=== PATIENT | female | born 1955 | race Hispanic/Latino ===

== ENCOUNTER → 2017-10-05 | Outpatient (CLI) | payer MEDICAID ==
[~2017-10-05] MED LIST: GLIP5TAB11 PO; LEVO500T89 PO; METO50TA18 PO; METR500T4 PO; OMEP20TA25 PO; POTA20TA12 PO
== END | disposition home or self-care (01) ==
LOC: SHCH 07:56
PROVIDERS: ATTEND Internal Medicine Cardiovascular Disease
DX: R94.31 Abnormal electrocardiogram [ECG] [EKG] (principal); I12.9 Hypertensive chronic kidney disease with stage 1 through stage 4 chronic kidney disease, or unspecified chronic kidney disease; E11.22 Type 2 diabetes mellitus with diabetic chronic kidney disease; N18.9 Chronic kidney disease, unspecified; Z90.49 Acquired absence of other specified parts of digestive tract; Z90.710 Acquired absence of both cervix and uterus
CPT/HCPCS: 93306

== ENCOUNTER → 2017-10-09 | Outpatient (CLI) | payer MEDICAID ==
[~2017-10-09] VITALS: Ht 157.5 cm; Wt 76.2 kg
[~2017-10-09] MED LIST changes: +REGADENOSON 0.4 MG/5 ML PF SYG IVP SCH
== END | disposition home or self-care (01) ==
LOC: SHCH 11:36
PROVIDERS: ATTEND Internal Medicine Cardiovascular Disease
DX: I25.10 Atherosclerotic heart disease of native coronary artery without angina pectoris (principal); R94.31 Abnormal electrocardiogram [ECG] [EKG]; I12.9 Hypertensive chronic kidney disease with stage 1 through stage 4 chronic kidney disease, or unspecified chronic kidney disease; E11.22 Type 2 diabetes mellitus with diabetic chronic kidney disease; N18.9 Chronic kidney disease, unspecified; Z90.49 Acquired absence of other specified parts of digestive tract; Z90.710 Acquired absence of both cervix and uterus
CPT/HCPCS: 78452; 93017; 96374; A9500 ×2; J2785

== ENCOUNTER 2019-09-12 07:44 | Inpatient (IN) | payer MEDICAID ==
[~2019-09-12] VITALS: Ht 157.5 cm; Wt 69.3 kg
[~2019-09-12 07:44] MED LIST changes: +METR-172 PO; -METR500T4 PO; -REGADENOSON 0.4 MG/5 ML PF SYG IVP SCH
[2019-09-12 08:41] LABS: BASOPHILS % (AUTO) 0.2 % (0.0-5.0); EOSINOPHILS % (AUTO) 0.1 % (0.0-8.0); HEMATOCRIT 34.6 % (36-48); LYMPHOCYTES % (AUTO) 18.4 % (21.0-51.0); MEAN CORPUSCULAR HEMOGLOBIN 31.1 pg (27.0-33.0); MEAN CORPUSCULAR HGB CONC 34.7 g/dL (32.0-36.0); MEAN CORPUSCULAR VOLUME 89.6 fL (79-99); MONOCYTES % (AUTO) 5.4 % (3.0-13.0); NEUTROPHILS % (AUTO) 75.5 % (40.0-77.0); PLATELET COUNT (AUTO) 205 K/uL (130-400); RED BLOOD CELL COUNT(AUTO) 3.86 MIL/uL (4.00-5.50); RED CELL DISTRIBUTION WIDTH 12.1 % (11.0-15.5); WHITE BLOOD COUNT (AUTO) 9.3 K/uL (4.8-10.8)
[2019-09-12 09:02] LABS: ALBUMIN 3.3 g/dL (3.5-5.0); BILIRUBIN,TOTAL 0.7 mg/dL (0.2-1.0); CREATININE 0.8 mg/dL (0.5-1.5); POTASSIUM 3.5 mmol/L (3.5-5.1); TOTAL PROTEIN, SERUM 8.5 g/dL (6.0-8.3)
[2019-09-12 09:14] LABS: INR 1.01 (0.85-1.15); PARTIAL THROMBOPLASTIN TIME 32.4 SEC (26.3-35.5); PROTHROMBIN TIME 10.9 SEC (9.6-11.6)
[2019-09-12] MEDS ORDERED: LEVOFLOXACIN 500 MG/D5W 100 ML 100 ML ONE (10:11)
[2019-09-12] MEDS: METHYLPREDNISOLONE SOD SUCC 40MG/ML 1ML IVP SCH ×2 (14:00→21:00)
[2019-09-12] MEDS ORDERED: DOXYCYCLINE 100MG+NS 250ML IV SCH (14:00)
[2019-09-12] MEDS ORDERED: ERGOCALCIFEROL (VITAMIN D2) 50,000 UNIT CAPSULE PO SCH (14:00)
[2019-09-12] MEDS: CEFTRIAXONE SODIUM 1 GM IVP SCH (14:00)
[2019-09-12] MEDS ORDERED: DOXYCYCLINE 100MG+NS 250ML 250 ML IV SCH (14:15)
[2019-09-12] MEDS ORDERED: METHYLPREDNISOLONE SOD SUCC 40MG/ML 1ML ONE ×2 (14:39→21:29)
[2019-09-12] MEDS ORDERED: CEFTRIAXONE SODIUM 1 GM ONE (14:39)
[2019-09-12] MEDS ORDERED: DOXYCYCLINE 100MG+NS 250ML 250 ML IV ONE (14:39)
[2019-09-12] MEDS ORDERED: PHARMACY COMMUNICATION MISC SCH (14:45)
[2019-09-12 15:04] LABS: HEMOGLOBIN A1C 7.5 % (4.0-6.0)
[2019-09-12] MEDS ORDERED: IVERMECTIN 3 MG TAB PO SCH (16:00)
[2019-09-12] MEDS: INSULIN HUMULIN R 100 UNIT/ML 3ML SQ SCH ×2 (16:30→21:00)
[2019-09-12] MEDS ORDERED: COMPOUND IV REFRIGERATED 1 EACH IVSOLN MISC PRN (18:15)
[2019-09-12] MEDS ORDERED: REMDESIVIR (EUA) 520 200 MG in SODIUM CHLORIDE 0.9% 250 ML IV ONE (18:30)
[2019-09-12] MEDS: FAMOTIDINE/PF 20 MG/2 ML VIAL IV SCH (21:00)
[2019-09-12] MEDS: DOXYCYCLINE HYCLATE 100 MG TABLET PO SCH (21:00)
[2019-09-12] MEDS ORDERED: FAMOTIDINE/PF 20 MG/2 ML VIAL IV ONE (21:30)
[2019-09-13] MEDS: CEFTRIAXONE SODIUM 1 GM IVP SCH ×2 (02:00→14:00)
[2019-09-13 04:25] LABS: BASOPHILS % (AUTO) 0.2 % (0.0-5.0); HEMATOCRIT 32.9 % (36-48); LYMPHOCYTES % (AUTO) 11.2 % (21.0-51.0); MEAN CORPUSCULAR HEMOGLOBIN 31.4 pg (27.0-33.0); MEAN CORPUSCULAR HGB CONC 34.7 g/dL (32.0-36.0); MEAN CORPUSCULAR VOLUME 90.6 fL (79-99); MONOCYTES % (AUTO) 1.6 % (3.0-13.0); NEUTROPHILS % (AUTO) 86.3 % (40.0-77.0); PLATELET COUNT (AUTO) 222 K/uL (130-400); RED BLOOD CELL COUNT(AUTO) 3.63 MIL/uL (4.00-5.50); RED CELL DISTRIBUTION WIDTH 12.3 % (11.0-15.5); WHITE BLOOD COUNT (AUTO) 8.7 K/uL (4.8-10.8)
[2019-09-13 04:37] LABS: ALBUMIN 2.9 g/dL (3.5-5.0); BILIRUBIN,TOTAL 0.5 mg/dL (0.2-1.0); CREATININE 0.9 mg/dL (0.5-1.5); POTASSIUM 4.5 mmol/L (3.5-5.1); TOTAL PROTEIN, SERUM 8.2 g/dL (6.0-8.3)
[2019-09-13] MEDS ORDERED: DOXYCYCLINE HYCLATE 100 MG TABLET PO ONE ×4 (04:37→21:21)
[2019-09-13 05:05] LABS: CRP QUANTITATIVE 194.8 mg/L (0.00-9.0)
[2019-09-13] MEDS: INSULIN HUMULIN R 100 UNIT/ML 3ML SQ SCH ×4 (07:30→21:00)
[2019-09-13] MEDS ORDERED: OMEG1CAP45 PO (08:25)
[2019-09-13] MEDS ORDERED: MV C1CAP5 PO (08:25)
[2019-09-13] MEDS ORDERED: LISI40TA4 PO (08:25)
[2019-09-13] MEDS ORDERED: GLIM4TAB36 PO (08:25)
[2019-09-13] MEDS ORDERED: BUTA1CAP53 PO (08:25)
[2019-09-13] MEDS ORDERED: AMLO5TAB9 PO (08:25)
[2019-09-13] MEDS ORDERED: METO75TA PO (08:25)
[2019-09-13] MEDS ORDERED: METF-445 PO (08:25)
[2019-09-13] MEDS: FAMOTIDINE/PF 20 MG/2 ML VIAL IV SCH ×2 (09:00→21:00)
[2019-09-13] MEDS: ENOXAPARIN SODIUM 40 MG/0.4 ML SYRINGE SQ SCH (09:00)
[2019-09-13] MEDS: ASCORBIC ACID 500 MG TAB PO SCH (09:00)
[2019-09-13] MEDS: METHYLPREDNISOLONE SOD SUCC 40MG/ML 1ML IVP SCH ×3 (09:00→21:00)
[2019-09-13] MEDS: DOXYCYCLINE HYCLATE 100 MG TABLET PO SCH ×2 (09:00→21:00)
[2019-09-13] MEDS ORDERED: ENOXAPARIN SODIUM 40 MG/0.4 ML SYRINGE SQ ONE (09:06)
[2019-09-13] MEDS ORDERED: METHYLPREDNISOLONE SOD SUCC 40MG/ML 1ML ONE ×3 (09:06→21:04)
[2019-09-13] MEDS ORDERED: ASCORBIC ACID 500 MG TAB ONE (09:06)
[2019-09-13] MEDS ORDERED: FAMOTIDINE/PF 20 MG/2 ML VIAL IV ONE ×2 (09:07→21:04)
[2019-09-13] MEDS ORDERED: INSULIN HUMULIN R 100 UNIT/ML 3ML ONE ×3 (09:32→21:17)
[2019-09-13 11:11] LABS: HEPATITIS A ANTIBODY IGM Negative (Negative); HEPATITIS B CORE IGM Negative (Negative); HEPATITIS Bs ANTIGEN SCREEN P Negative (Negative)
[2019-09-13] MEDS: ZINC SULFATE 220 CAPSULE PO SCH (12:00)
[2019-09-13] MEDS ORDERED: ZINC SULFATE 220 CAPSULE ONE (12:49)
--- NOTE | 2019-09-13 13:13 | NUR ---
CHART CHECK COMPLETED. Pt IS A 64 Y.O. FEMALE ADMITTED SECONDARY TO ACUTE HYPOXIC RESPIRATORY FAILURE, COVID 19 PNEUMONIA. Pt HAS A PAST MEDICAL HISTORY SIGNIFICANT FOR DM, HTN, BREAST CA, ANEMIA, HYPONATREMIA, CHOLECYSTECTOMY, HYSTERECTOMY. Pt CURRENTLY ON REGULAR TEXTURE,THIN LIQUID DIET (HEART HEALTHY). PLEASE REQUEST FORMAL SKILLED SPEECH/SWALLOW EVALUATION IF Pt PRESENTS WITH +S/S OF ASPIRATION SUCH COUGH RESPONSE, THROAT CLEAR, OR WET VOCAL QUALITY DURING P.O. Addendum: 09/13/19 at 1318 by LAYO SWANSON [facility] Amended: Links added.
[2019-09-13] MEDS ORDERED: CEFTRIAXONE SODIUM 1 GM ONE (14:52)
[2019-09-13] MEDS: REMDESIVIR (EUA) 520 100 MG in SODIUM CHLORIDE 0.9% 250 ML IV SCH (18:00)
[2019-09-14] VITALS (7 sets, daily range): BP systolic 108–151; BP diastolic 64–91
[2019-09-14] MEDS: CEFTRIAXONE SODIUM 1 GM IVP SCH ×2 (01:54→15:12)
--- NOTE | 2019-09-14 02:34 | NUR ---
Non-Compliant Patient Patient has been educated on numerous occasions the importance of keeping her heart monitor on. However, she still chooses to be non-compliant and take the monitor off. She is still being closely monitored.
[2019-09-14 04:57] LABS: BASOPHILS % (AUTO) 0.1 % (0.0-5.0); HEMATOCRIT 33.2 % (36-48); MEAN CORPUSCULAR HEMOGLOBIN 30.9 pg (27.0-33.0); MEAN CORPUSCULAR HGB CONC 34.3 g/dL (32.0-36.0); MONOCYTES % (AUTO) 4.6 % (3.0-13.0); NEUTROPHILS % (AUTO) 81.4 % (40.0-77.0); PLATELET COUNT (AUTO) 282 K/uL (130-400); RED BLOOD CELL COUNT(AUTO) 3.69 MIL/uL (4.00-5.50); RED CELL DISTRIBUTION WIDTH 12.1 % (11.0-15.5); WHITE BLOOD COUNT (AUTO) 10.5 K/uL (4.8-10.8)
[2019-09-14 05:17] LABS: ALBUMIN 2.8 g/dL (3.5-5.0); BILIRUBIN,TOTAL 0.3 mg/dL (0.2-1.0); CREATININE 0.9 mg/dL (0.5-1.5); CRP QUANTITATIVE 134.9 mg/L (0.00-9.0); POTASSIUM 4.7 mmol/L (3.5-5.1); TOTAL PROTEIN, SERUM 7.9 g/dL (6.0-8.3)
[2019-09-14] MEDS: INSULIN HUMULIN R 100 UNIT/ML 3ML SQ SCH ×4 (06:14→21:08)
[2019-09-14 07:00] LABS: APPEARANCE,URINE Clear (CLEAR); BILIRUBIN,URINE Negative (NEGATIVE); COLOR,URINE Yellow (YELLOW); GLUCOSE, URINE (UA) >=1000 mg/dL (NEGATIVE); KETONES,URINE Trace mg/dL (NEGATIVE); LEUKOCYTE ESTERASE ,URINE Negative (NEGATIVE); NITRATE,URINE Negative (NEGATIVE); OCCULT BLOOD,URINE Negative (NEGATIVE); PH,URINE 5.5 (5.0-8.0); PROTEIN,URINE Trace mg/dL (NEGATIVE); UROBILINOGEN,URINE 0.2 mg/dL (0.2-1.0)
[2019-09-14 07:14] LABS: BACTERIA,URINE Rare /HPF (None Seen); RBC,URINE 0-1 /HPF (0-1); SQUAMOUS EPITHELIAL CELL,UR Rare /HPF (0-2); WBC,URINE 0-1 /HPF (0-1)
[2019-09-14] MEDS: DOXYCYCLINE HYCLATE 100 MG TABLET PO SCH ×2 (08:40→21:08)
[2019-09-14] MEDS: ASCORBIC ACID 500 MG TAB PO SCH (08:40)
[2019-09-14] MEDS: METHYLPREDNISOLONE SOD SUCC 40MG/ML 1ML IVP SCH ×3 (08:40→21:08)
[2019-09-14] MEDS: FAMOTIDINE/PF 20 MG/2 ML VIAL IV SCH ×2 (08:40→21:08)
[2019-09-14] MEDS: ENOXAPARIN SODIUM 40 MG/0.4 ML SYRINGE SQ SCH (08:41)
[2019-09-14] MEDS: ZINC SULFATE 220 CAPSULE PO SCH (11:48)
[2019-09-14] MEDS: REMDESIVIR (EUA) 520 100 MG in SODIUM CHLORIDE 0.9% 250 ML IV SCH (18:02)
--- NOTE | 2019-09-14 18:04 | NUR ---
MULTIPLE TIMES PT HAVE BEEN EDUCATED ABOUT CONDITION AND RISKS OF BEEN WITHOUT THE O2, PT NOT COMPLETELY COMPLIANT WITH TREATMENT, SEVERAL TIMES WHEN GOING TO THE ROOM SHE IS FOUND ON THE BATHROOM BY HER SELF AND DISCONNECTED FROM O2.
[2019-09-14] MEDS: INSULIN GLARGINE 100 UNITS/ML 10 ML VIAL SQ SCH (23:37)
[2019-09-15] MEDS: CEFTRIAXONE SODIUM 1 GM IVP SCH ×2 (02:00→14:53)
[2019-09-15 03:59] VITALS: BP 122/70
--- NOTE | 2019-09-15 04:19 | NUR ---
Assessment Patient was just rounded on & she was sleeping peacefully. She is not showing any S/S of distress. Vitals are stable & she is being closely monitored.
[2019-09-15] MEDS: INSULIN LISPRO 100 UNIT/ML 3ML SQ SCH ×3 (05:45→16:37)
[2019-09-15] MEDS: INSULIN HUMULIN R 100 UNIT/ML 3ML SQ SCH ×4 (05:47→20:51)
[2019-09-15 07:16] LABS: BASOPHILS % (AUTO) 0.1 % (0.0-5.0); HEMATOCRIT 31.6 % (36-48); LYMPHOCYTES % (AUTO) 11.5 % (21.0-51.0); MEAN CORPUSCULAR HEMOGLOBIN 31.2 pg (27.0-33.0); MEAN CORPUSCULAR HGB CONC 34.5 g/dL (32.0-36.0); MEAN CORPUSCULAR VOLUME 90.5 fL (79-99); MONOCYTES % (AUTO) 4.6 % (3.0-13.0); PLATELET COUNT (AUTO) 323 K/uL (130-400); RED BLOOD CELL COUNT(AUTO) 3.49 MIL/uL (4.00-5.50); RED CELL DISTRIBUTION WIDTH 12.3 % (11.0-15.5); WHITE BLOOD COUNT (AUTO) 11.9 K/uL (4.8-10.8)
[2019-09-15 07:36] LABS: ALBUMIN 2.8 g/dL (3.5-5.0); BILIRUBIN,TOTAL 0.3 mg/dL (0.2-1.0); CREATININE 0.8 mg/dL (0.5-1.5); CRP QUANTITATIVE 73.6 mg/L (0.00-9.0); TOTAL PROTEIN, SERUM 7.4 g/dL (6.0-8.3)
[2019-09-15] MEDS: DOXYCYCLINE HYCLATE 100 MG TABLET PO SCH ×2 (08:09→19:49)
[2019-09-15] MEDS: ASCORBIC ACID 500 MG TAB PO SCH (08:09)
[2019-09-15] MEDS: METHYLPREDNISOLONE SOD SUCC 40MG/ML 1ML IVP SCH ×3 (08:10→19:50)
[2019-09-15] MEDS: FAMOTIDINE/PF 20 MG/2 ML VIAL IV SCH ×2 (08:10→19:50)
[2019-09-15] MEDS: ENOXAPARIN SODIUM 40 MG/0.4 ML SYRINGE SQ SCH (08:11)
[2019-09-15 09:36] VITALS: BP 152/95
[2019-09-15] MEDS: ZINC SULFATE 220 CAPSULE PO SCH (12:00)
[2019-09-15 12:20] VITALS: BP 148/87
[2019-09-15 16:25] VITALS: BP 157/96
[2019-09-15] MEDS: REMDESIVIR (EUA) 520 100 MG in SODIUM CHLORIDE 0.9% 250 ML IV SCH (17:16)
--- NOTE | 2019-09-15 19:13 | NUR ---
AVINASH ELDRIDGE SPOKE TO DAUGHTER WAQAR FOR DC PLANNING PHONE NUMBERS OF PATIENT UPDATED AND FAXED. LIVES WITH SPOUSE PREVIOUSLY INDEPENDENT, HAS BEEN ON TX FOR CANCER, USES A CANE OCCASIONALLY, HAS A BP MACHINE AND GLUCOMETER, BUT NO OTHER DME EXCEPT A SHOWER CHAIR. HOME SAFE AND ACCESSIBLE NO PROVIDER SERVICES, WHEN WEAK FMAILY HELPS. SPOUSE AND DAUGHTER DRIVE . FOLLOWS WITH DR. KOBI GILLIS Q 3 [facility] LABS. [facility] Addendum: 09/15/19 at 1920 by LUCIANA MATTHEWS RN CM Amended: Links added.
[2019-09-15] MEDS: INSULIN GLARGINE 100 UNITS/ML 10 ML VIAL SQ SCH (20:50)
[2019-09-15 21:09] VITALS: BP 171/93
[2019-09-15 23:54] VITALS: BP 160/82
[2019-09-16] MEDS: CEFTRIAXONE SODIUM 1 GM IVP SCH ×2 (01:28→14:51)
[2019-09-16 04:29] LABS: BASOPHILS % (AUTO) 0.1 % (0.0-5.0); HEMATOCRIT 31.4 % (36-48); LYMPHOCYTES % (AUTO) 16.5 % (21.0-51.0); MEAN CORPUSCULAR HEMOGLOBIN 30.6 pg (27.0-33.0); MEAN CORPUSCULAR HGB CONC 34.1 g/dL (32.0-36.0); MEAN CORPUSCULAR VOLUME 89.7 fL (79-99); MONOCYTES % (AUTO) 5.7 % (3.0-13.0); NEUTROPHILS % (AUTO) 76.2 % (40.0-77.0); PLATELET COUNT (AUTO) 322 K/uL (130-400); WHITE BLOOD COUNT (AUTO) 8.8 K/uL (4.8-10.8)
[2019-09-16 04:46] LABS: CREATININE 0.8 mg/dL (0.5-1.5); POTASSIUM 4.4 mmol/L (3.5-5.1)
[2019-09-16] MEDS: INSULIN HUMULIN R 100 UNIT/ML 3ML SQ SCH ×4 (06:23→20:29)
[2019-09-16] MEDS: INSULIN LISPRO 100 UNIT/ML 3ML SQ SCH ×3 (06:24→16:53)
[2019-09-16 06:54] VITALS: BP 159/96
[2019-09-16] MEDS: ASCORBIC ACID 500 MG TAB PO SCH (08:29)
[2019-09-16] MEDS: DOXYCYCLINE HYCLATE 100 MG TABLET PO SCH ×2 (08:30→20:18)
[2019-09-16] MEDS: METHYLPREDNISOLONE SOD SUCC 40MG/ML 1ML IVP SCH ×2 (08:30→14:51)
[2019-09-16] MEDS: ENOXAPARIN SODIUM 40 MG/0.4 ML SYRINGE SQ SCH (08:30)
[2019-09-16] MEDS: FAMOTIDINE/PF 20 MG/2 ML VIAL IV SCH ×2 (08:30→20:18)
[2019-09-16 08:49] VITALS: BP 154/93
[2019-09-16 11:04] VITALS: BP 168/93
[2019-09-16] MEDS: ZINC SULFATE 220 CAPSULE PO SCH (12:29)
--- NOTE | 2019-09-16 16:03 | NUR ---
Oncology Consult for MD Teresita MD notified per breast cancer, pt alert, showed no signs and symptoms of distress, will continue to monitor
[2019-09-16 16:19] VITALS: BP 170/77
[2019-09-16] MEDS: REMDESIVIR (EUA) 520 100 MG in SODIUM CHLORIDE 0.9% 250 ML IV SCH (16:55)
[2019-09-16] MEDS: INSULIN GLARGINE 100 UNITS/ML 10 ML VIAL SQ SCH (20:29)
[2019-09-16 21:02] VITALS: BP 171/86
[2019-09-17 01:11] VITALS: BP 164/86
[2019-09-17] MEDS: CEFTRIAXONE SODIUM 1 GM IVP SCH ×2 (01:53→14:28)
[2019-09-17 03:52] LABS: BASOPHILS % (AUTO) 0.1 % (0.0-5.0); EOSINOPHILS % (AUTO) 0.1 % (0.0-8.0); HEMATOCRIT 33.3 % (36-48); LYMPHOCYTES % (AUTO) 25.3 % (21.0-51.0); MEAN CORPUSCULAR HEMOGLOBIN 30.8 pg (27.0-33.0); MEAN CORPUSCULAR HGB CONC 34.5 g/dL (32.0-36.0); MEAN CORPUSCULAR VOLUME 89.3 fL (79-99); MONOCYTES % (AUTO) 6.7 % (3.0-13.0); NEUTROPHILS % (AUTO) 66.3 % (40.0-77.0); PLATELET COUNT (AUTO) 332 K/uL (130-400); RED BLOOD CELL COUNT(AUTO) 3.73 MIL/uL (4.00-5.50); RED CELL DISTRIBUTION WIDTH 11.9 % (11.0-15.5); WHITE BLOOD COUNT (AUTO) 8.8 K/uL (4.8-10.8)
[2019-09-17 04:02] LABS: CREATININE 0.8 mg/dL (0.5-1.5); POTASSIUM 4.1 mmol/L (3.5-5.1)
[2019-09-17] MEDS: INSULIN HUMULIN R 100 UNIT/ML 3ML SQ SCH ×4 (05:23→20:19)
[2019-09-17] MEDS: INSULIN LISPRO 100 UNIT/ML 3ML SQ SCH ×3 (05:23→16:58)
--- NOTE | 2019-09-17 06:22 | NUR ---
Assessment Patient was just rounded on this morning. She is in the bed resting peacefully. She is not showing any S/S of distress. Her Vitals are stable & she is being closely monitored.
[2019-09-17 06:28] VITALS: BP 157/93
[2019-09-17 08:31] VITALS: BP 160/94
[2019-09-17] MEDS: DEXAMETHASONE SOD PHOSPHATE 4 MG/ML 1ML VIAL IVP SCH (09:01)
[2019-09-17] MEDS: FAMOTIDINE/PF 20 MG/2 ML VIAL IV SCH ×2 (09:01→20:13)
[2019-09-17] MEDS: DOXYCYCLINE HYCLATE 100 MG TABLET PO SCH ×2 (09:02→20:13)
[2019-09-17] MEDS: ASCORBIC ACID 500 MG TAB PO SCH (09:02)
[2019-09-17] MEDS: ENOXAPARIN SODIUM 40 MG/0.4 ML SYRINGE SQ SCH (09:02)
[2019-09-17 11:29] VITALS: BP 162/88
[2019-09-17] MEDS: ZINC SULFATE 220 CAPSULE PO SCH (12:28)
--- NOTE | 2019-09-17 12:57 | NUR ---
spot checked pt on room air, sp02 98%, pt sitting up in bedside chair. no acute distress observed or reported.
--- NOTE | 2019-09-17 15:08 | NUR ---
RT home oxygen eval completed, pt does not qualify for home oxygen.
[2019-09-17 16:08] VITALS: BP 131/84
[2019-09-17] MEDS: INSULIN GLARGINE 100 UNITS/ML 10 ML VIAL SQ SCH (20:20)
[2019-09-17 20:46] VITALS: BP 141/96
[2019-09-18 00:28] VITALS: BP 153/93
[2019-09-18] MEDS: CEFTRIAXONE SODIUM 1 GM IVP SCH (02:03)
--- NOTE | 2019-09-18 04:40 | NUR ---
Assessment Patient is in the bed sleeping peacefully. She is not showing any S/S of distress. Vitals are stable & she is being closely monitored,
[2019-09-18] MEDS: INSULIN HUMULIN R 100 UNIT/ML 3ML SQ SCH ×2 (05:26→12:12)
[2019-09-18] MEDS: INSULIN LISPRO 100 UNIT/ML 3ML SQ SCH ×2 (05:26→12:11)
[2019-09-18 06:15] LABS: MEAN CORPUSCULAR HEMOGLOBIN 31.1 pg (27.0-33.0); MEAN CORPUSCULAR HGB CONC 35.1 g/dL (32.0-36.0); MEAN CORPUSCULAR VOLUME 88.6 fL (79-99); PLATELET COUNT (AUTO) 349 K/uL (130-400); RED BLOOD CELL COUNT(AUTO) 3.95 MIL/uL (4.00-5.50); RED CELL DISTRIBUTION WIDTH 11.7 % (11.0-15.5); WHITE BLOOD COUNT (AUTO) 8.5 K/uL (4.8-10.8)
[2019-09-18 06:17] VITALS: BP 134/86
[2019-09-18 08:07] LABS: BAND NEUTROPHILS % (MANUAL) 2 % (0-2); EOSINOPHILS % (MANUAL) 1 % (1-6); LYMPHOCYTES % (MANUAL) 21 % (22-44); MAN.DIFF COMMENT-IMPRESSION MANUAL DIFFERENTIAL; MONOCYTES % (MANUAL) 3 % (2-9); PLATELET MORPHOLOGY COMMENT ADEQUATE; SEGMENTED NEUTROPHILS % 73 % (40-70)
[2019-09-18 08:10] LABS: BILIRUBIN,TOTAL 0.4 mg/dL (0.2-1.0); CREATININE 0.8 mg/dL (0.5-1.5); CRP QUANTITATIVE 29.4 mg/L (0.00-9.0); POTASSIUM 3.8 mmol/L (3.5-5.1); TOTAL PROTEIN, SERUM 7.3 g/dL (6.0-8.3)
[2019-09-18 08:13] VITALS: BP 137/95
[2019-09-18] MEDS: ASCORBIC ACID 500 MG TAB PO SCH (08:25)
[2019-09-18] MEDS: DOXYCYCLINE HYCLATE 100 MG TABLET PO SCH (08:25)
[2019-09-18] MEDS: FAMOTIDINE/PF 20 MG/2 ML VIAL IV SCH (08:25)
[2019-09-18] MEDS: DEXAMETHASONE SOD PHOSPHATE 4 MG/ML 1ML VIAL IVP SCH (08:28)
[2019-09-18] MEDS: ENOXAPARIN SODIUM 40 MG/0.4 ML SYRINGE SQ SCH (08:28)
[2019-09-18 12:07] VITALS: BP 124/82
[2019-09-18] MEDS: ZINC SULFATE 220 CAPSULE PO SCH (12:14)
[2019-09-18] MEDS ORDERED: ZINC1CAP3 PO (13:13)
[2019-09-18] MEDS ORDERED: CETI10CA5 PO (13:13)
[2019-09-18] MEDS ORDERED: ALBU8.5H8 IH (13:13)
[2019-09-18] MEDS ORDERED: DEXA6TAB7 PO (13:13)
[2019-09-18] MEDS ORDERED: DOXY100C40 PO (13:13)
[2019-09-18] MEDS ORDERED: ASCO500T10 PO (13:13)
== END 2019-09-18 15:30 | disposition home or self-care (01) | DRG 137 ==
LOC: EDH 07:44 → EDHIP 07:45 → 4DH 09-13 21:07
PROVIDERS: ADMIT Hospitalist; ATTEND Hospitalist
DX: U07.1 COVID-19 (principal); J12.89 Other viral pneumonia; J96.01 Acute respiratory failure with hypoxia; E87.1 Hypo-osmolality and hyponatremia; C50.919 Malignant neoplasm of unspecified site of unspecified female breast; N18.9 Chronic kidney disease, unspecified; E11.22 Type 2 diabetes mellitus with diabetic chronic kidney disease; I12.9 Hypertensive chronic kidney disease with stage 1 through stage 4 chronic kidney disease, or unspecified chronic kidney disease; R74.0 Nonspecific elevation of levels of transaminase and lactic acid dehydrogenase [LDH]; E78.5 Hyperlipidemia, unspecified; J44.0 Chronic obstructive pulmonary disease with (acute) lower respiratory infection; Z85.3 Personal history of malignant neoplasm of breast; Z86.19 Personal history of other infectious and parasitic diseases; Z90.710 Acquired absence of both cervix and uterus; Z92.21 Personal history of antineoplastic chemotherapy
CPT/HCPCS: 36415; 70450; 71045; 73110; 80048; 80053; 80074; 81001; 82728; 82948; 83036; 83605; 83615; 83880; 84145; 84484; 85025; 85378; 85610; 85730; 86140; 86850; 86900; 86901; 87040; 87426; 93005; 94760; G0378; J0696; J1100; J1650; J1815; J1956; J2920; J3490; J7050

== ENCOUNTER 2020-04-04 08:39 | Day surgery (SDC) | payer MEDICAID ==
[2020-03-28 11:56] LABS: BASOPHILS % (AUTO) 0.8 % (0.0-5.0); EOSINOPHILS % (AUTO) 5.3 % (0.0-8.0); HEMATOCRIT 37.4 % (36-48); LYMPHOCYTES % (AUTO) 36.5 % (21.0-51.0); MEAN CORPUSCULAR HEMOGLOBIN 31.1 pg (27.0-33.0); MEAN CORPUSCULAR VOLUME 91.4 fL (79-99); MONOCYTES % (AUTO) 8.6 % (3.0-13.0); NEUTROPHILS % (AUTO) 48.6 % (40.0-77.0); PLATELET COUNT (AUTO) 164 K/uL (130-400); RED BLOOD CELL COUNT(AUTO) 4.09 MIL/uL (4.00-5.50); RED CELL DISTRIBUTION WIDTH 12.3 % (11.0-15.5); WHITE BLOOD COUNT (AUTO) 5.3 K/uL (4.8-10.8)
[2020-03-28 12:08] LABS: INR 0.99 (0.85-1.15); PROTHROMBIN TIME 10.8 SEC (9.6-11.6)
[2020-03-28 12:09] LABS: PARTIAL THROMBOPLASTIN TIME 25.3 SEC (26.3-35.5)
[2020-03-28 12:12] LABS: ALBUMIN 4.4 g/dL (3.5-5.0); BILIRUBIN,TOTAL 0.3 mg/dL (0.2-1.0); CREATININE 0.9 mg/dL (0.5-1.5); POTASSIUM 5.5 mmol/L (3.5-5.1); TOTAL PROTEIN, SERUM 8.6 g/dL (6.0-8.3)
[2020-04-03 12:39] VITALS: BP 155/82
[~2020-04-04] VITALS: Ht 160 cm; Wt 73.8 kg
[2020-04-04] VITALS (19 sets, daily range): BP systolic 130–156; BP diastolic 65–88
[~2020-04-04 08:39] MED LIST changes: +ALBU8.5H8 IH; +AMLO-257 PO; +ASCO500T10 PO; +BUTA1CAP53 PO; +CEFAZOLIN SODIUM 1 GM VIAL IVP SCH; +CETI10CA5 PO; +DEXA6TAB7 PO; +DOXY100C40 PO; +GLIM4TAB36 PO; -GLIP5TAB11 PO; -LEVO500T89 PO; +LISI40TA9 PO; +METF-445 PO; -METO50TA18 PO; +METO75TA PO; -METR-172 PO; +MV C1CAP5 PO; +OMEG1CAP45 PO; -OMEP20TA25 PO; -POTA20TA12 PO; +SODIUM CHLORIDE 0.9% 100 ML IV SCH; +ZINC1CAP3 PO
[2020-04-04] MEDS ORDERED: METF-446 PO (08:52)
[2020-04-04] MEDS ORDERED: LETR2.5T7 PO (08:55)
[2020-04-04] MEDS ORDERED: CEFAZOLIN SODIUM 1 GM VIAL ONE (09:48)
[2020-04-04] MEDS ORDERED: LIDOCAINE HCL 1% 20 ML VIAL ONE (10:44)
[2020-04-04] MEDS ORDERED: BUPIVACAINE/PF 0.25% 50ML VIAL IJ ONE (10:44)
[2020-04-04] MEDS ORDERED: SUCCINYLCHOLINE CHLORIDE 20 MG/ML 10 ML VIAL ONE (11:02)
[2020-04-04] MEDS ORDERED: ONDANSETRON HCL 4 MG/2 ML VIAL ONE (11:02)
[2020-04-04] MEDS ORDERED: PROPOFOL 10 MG/ML 20ML VIAL IV ONE (11:02)
[2020-04-04] MEDS ORDERED: PROPRANOLOL HCL 1 MG/ML VIAL IVP ONE (11:02)
[2020-04-04] MEDS ORDERED: ROCURONIUM 10MG/1ML SYR 10 MG/ML ML ONE (11:02)
[2020-04-04] MEDS ORDERED: LIDOCAINE PF 2% 5ML ABBOJECT ONE (11:02)
[2020-04-04] MEDS ORDERED: MIDAZOLAM HCL 1 MG/ML 2ML VIAL ONE (11:04)
[2020-04-04] MEDS ORDERED: FENTANYL CITRATE PF 50 MCG/1 ML 2ML VIAL ONE ×2 (11:04→12:17)
[2020-04-04] MEDS ORDERED: FAMOTIDINE/PF 20 MG/2 ML VIAL IV ONE (11:55)
[2020-04-04] MEDS ORDERED: EPHEDRINE SULFATE 50 MG/ML AMPULE ONE (11:55)
[2020-04-04] MEDS ORDERED: GLYCOPYRROLATE 1 MG/5 ML SYRINGE ONE (12:50)
[2020-04-04] MEDS ORDERED: NEOSTIGMINE 5MG/5ML SYR IV ONE (12:50)
== END 2020-04-04 14:30 | disposition home or self-care (01) ==
LOC: DAH 08:39
PROVIDERS: ATTEND Student in an Organized Health Care Education/Training Program
DX: C50.911 Malignant neoplasm of unspecified site of right female breast (principal); I10 Essential (primary) hypertension; E11.9 Type 2 diabetes mellitus without complications; E78.5 Hyperlipidemia, unspecified; Z90.49 Acquired absence of other specified parts of digestive tract; Z79.01 Long term (current) use of anticoagulants; Z90.710 Acquired absence of both cervix and uterus; Z20.828 Contact with and (suspected) exposure to other viral communicable diseases; Z79.899 Other long term (current) drug therapy
CPT/HCPCS: 19301; 36415 ×2; 38525; 78195; 80053; 82948 ×2; 84132; 85025; 85610; 85730; 88307; 88341; 88342; A4215; A4221; A4222; A4223; A4510; A4600; A4649 ×2; A4663; A4930; A6207; A6260; A9541; C9803; G0168; J0330; J0690; J1800; J2001; J2250; J2405; J2704; J2710; J3010 ×2; J3490 ×4; U0003

== ENCOUNTER → 2022-04-12 | Outpatient (CLI) | payer OTHER, MEDICARE ==
[~2022-04-12] MED LIST changes: -ALBU8.5H8 IH; -ASCO500T10 PO; -BUTA1CAP53 PO; -CEFAZOLIN SODIUM 1 GM VIAL IVP SCH; -CETI10CA5 PO; -DEXA6TAB7 PO; -DOXY100C40 PO; +LETR2.5T7 PO; -METF-445 PO; +METF-446 PO; -SODIUM CHLORIDE 0.9% 100 ML IV SCH; -ZINC1CAP3 PO
== END | disposition home or self-care (01) ==
LOC: SHCH 14:12
PROVIDERS: ATTEND Student in an Organized Health Care Education/Training Program
DX: R94.31 Abnormal electrocardiogram [ECG] [EKG] (principal)
CPT/HCPCS: 93306

== ENCOUNTER 2023-11-01 07:34 | Emergency (ER) | payer OTHER, MEDICARE ==
[~2023-11-01] VITALS: Ht 157.5 cm; Wt 71.2 kg
[2023-11-01 07:43] VITALS: BP 172/92; PULSE 73; RESP 20; TEMP 97.7; O2SAT 100
[2023-11-01 08:10] LABS: BASOPHILS # (AUTO) 0.05 K/uL (0.00-0.20); BASOPHILS % (AUTO) 0.7 % (0.0-5.0); EOSINOPHILS # (AUTO) 0.33 K/uL (0.00-0.70); EOSINOPHILS % (AUTO) 4.9 % (0.0-8.0); HEMATOCRIT 38.1 % (36-48); IMMATURE GRANULOCYTE ABSOLUTE 0.05 K/uL (0-1); LYMPHOCYTES # (AUTO) 2.1 K/uL (1.0-4.8); LYMPHOCYTES % (AUTO) 30.3 % (21.0-51.0); MEAN CORPUSCULAR HEMOGLOBIN 30.7 pg (27.0-33.0); MEAN CORPUSCULAR HGB CONC 34.6 g/dL (32.0-36.0); MEAN CORPUSCULAR VOLUME 88.6 fL (79-99); MONOCYTES # (AUTO) 0.5 K/uL (0.1-1.0); MONOCYTES % (AUTO) 7.8 % (3.0-13.0); NEUTROPHILS # (AUTO) 3.8 K/uL (1.8-7.7); NEUTROPHILS % (AUTO) 55.6 % (40.0-77.0); PLATELET COUNT (AUTO) 163 K/uL (130-400); RED CELL DISTRIBUTION WIDTH 12.3 % (11.0-15.5); WHITE BLOOD COUNT (AUTO) 6.8 K/uL (4.8-10.8)
[2023-11-01 08:27] LABS: ALBUMIN 4.4 g/dL (3.5-5.0); BILIRUBIN,TOTAL 0.4 mg/dL (0.2-1.0); CREATININE 0.9 mg/dL (0.5-1.0); POTASSIUM 4.2 mmol/L (3.5-5.1); TOTAL PROTEIN, SERUM 8.6 g/dL (6.0-8.3)
[2023-11-01] MEDS: ONDANSETRON 4MG INJ IVP ONE (08:59)
[2023-11-01] MEDS: 0.9% NACL 500ML IV.SOLN 500 ML IV SCH (09:11)
[2023-11-01 12:06] LABS: APPEARANCE,URINE CLEAR (CLEAR); BILIRUBIN,URINE NEGATIVE (NEGATIVE); COLOR,URINE COLORLESS (YELLOW); GLUCOSE, URINE (UA) 200 mg/dL (NEGATIVE); KETONES,URINE 20 mg/dL (NEGATIVE); LEUKOCYTE ESTERASE ,URINE 75 Leu/uL (NEGATIVE); NITRATE,URINE NEGATIVE (NEGATIVE); OCCULT BLOOD,URINE NEGATIVE (NEGATIVE); PROTEIN,URINE NEGATIVE (NEGATIVE); UROBILINOGEN,URINE 0.2 mg/dL (0.2-1.0)
[2023-11-01 12:07] LABS: ADD UA MICROSCOPIC YES
[2023-11-01 12:13] LABS: BACTERIA,URINE FEW /HPF (None Seen); MUCUS,URINE RARE LPF (None Seen); SQUAMOUS EPITHELIAL CELL,UR RARE /HPF (0-2)
[2023-11-01] MEDS ORDERED: NITR100C4 PO (13:49)
[2023-11-01] MEDS ORDERED: ONDA-243 PO (13:49)
== END 2023-11-01 16:00 | disposition home or self-care (01) ==
LOC: EDH 07:34
DX: N39.0 Urinary tract infection, site not specified (principal); R11.2 Nausea with vomiting, unspecified; E11.9 Type 2 diabetes mellitus without complications; I10 Essential (primary) hypertension; Z79.811 Long term (current) use of aromatase inhibitors; Z79.899 Other long term (current) drug therapy; Z91.018 Allergy to other foods
CPT/HCPCS: 99284; 96374; 84484; 80053; 83690; 85025; 87086 ×2; 87186; 81001; 36415; 93005; J2405